=== PATIENT | male | born 1985 | race Caucasian/White ===

== ENCOUNTER 2023-12-19 13:23 | Emergency (ER) | payer SELFPAY ==
[~2023-12-19] VITALS: Ht 167.6 cm; Wt 63.5 kg
[2023-12-19 13:36] VITALS: BP 142/100; PULSE 115; RESP 16; TEMP 98; O2SAT 95
[2023-12-19 13:55] VITALS: O2SAT 95
[2023-12-19] MEDS: ONDANSETRON 4 MG ODT PO ONE (14:40)
[2023-12-19] MEDS: NACL 0.9% 1,000 ML IV ONE (14:41)
[2023-12-19 14:44] LABS: BASOPHILS # (AUTO) 0.1 K/uL (0.00-0.22); BASOPHILS % (AUTO) 0.6 % (0.0-2.0); EOSINOPHILS % (AUTO) 0.2 % (0.0-4.0); HEMATOCRIT 40.3 % (36-52); HEMOGLOBIN 13.8 g/dL (12.0-18.0); LYMPHOCYTES # (AUTO) 0.6 K/uL (2.0-11.5); LYMPHOCYTES % (AUTO) 6.9 % (20.5-51.1); MEAN CORPUSCULAR HEMOGLOBIN 30 pg (27-31); MEAN CORPUSCULAR HGB CONC 34 g/dL (33-37); MEAN CORPUSCULAR VOLUME 86.4 fL (80-94); MONOCYTES # (AUTO) 0.6 K/uL (0.8-1.0); MONOCYTES % (AUTO) 6.8 % (1.7-9.3); NEUTROPHILS % (AUTO) 85.5 % (42.2-75.2); PLATELET COUNT (AUTO) 334 K/uL (140-450); RED BLOOD CELL COUNT(AUTO) 4.66 MIL/uL (4.20-6.10); RED CELL DISTRIBUTION WIDTH 14.1 % (11.6-13.7); WHITE BLOOD COUNT (AUTO) 9.3 K/uL (4.8-10.8)
[2023-12-19 14:51] LABS: ANION GAP 15.8 (8-16); CALCIUM 9.2 mg/dL (8.5-10.1); CARBON DIOXIDE 22.2 mmol/L (21-32); CREATININE 1.5 mg/dL (0.6-1.3)
[2023-12-19 15:02] LABS: ACETAMINOPHEN < 0.5 ug/ml (10-30); ALCOHOL, BLOOD < 3 mg/dL (<10); SALICYLATE < 2.8 mg/dL (2.8-20.0)
[2023-12-19 16:05] VITALS: O2SAT 98
[2023-12-19 16:14] LABS: AMPHETAMINE, URINE POSITIVE ng/ml (NEG <=1000); CANNABINOID, URINE POSITIVE ng/mL (NEG <=50)
[2023-12-19 16:15] LABS: BARBITURATE, URINE NEGATIVE ng/ml (NEG <=200); BENZODIAZEPINE, URINE NEGATIVE ng/mL (NEG <=200); COCAINE, URINE NEGATIVE ng/mL (NEG <=300); OPIATE, URINE NEGATIVE ng/mL (NEG <=2000); PHENCYCLIDINE SCREEN,URINE NEGATIVE ng/mL (NEG <=25)
[2023-12-19] MEDS ORDERED: MIDAZOLAM 5 MG/5 ML VIAL IM ONE (16:25)
[2023-12-19] MEDS ORDERED: MIDAZOLAM 5 MG/5 ML VIAL ONE (16:26)
[2023-12-19] MEDS ORDERED: OLANZapine 10 MG VIAL IM ONE (16:27)
[2023-12-19] MEDS ORDERED: WATER STERILE 10 ML MC ONE (16:34)
[2023-12-19] MEDS ORDERED: MIDAZOLAM 5 MG/1 ML VIAL NS ONE (16:40)
[2023-12-19] MEDS: OLANZapine 10 MG VIAL IM ONE (16:42)
[2023-12-19] MEDS: MIDAZOLAM 2 MG/2 ML VIAL IM ONE (19:25)
[2023-12-19 23:08] VITALS: TEMP 97.9
[2023-12-20 03:34] VITALS: BP 125/59; PULSE 92; RESP 16; O2SAT 99
== END 2023-12-20 04:51 | disposition home or self-care (01) ==
LOC: MED 13:23
DX: F19.10 Other psychoactive substance abuse, uncomplicated (principal); R41.82 Altered mental status, unspecified; I10 Essential (primary) hypertension
CPT/HCPCS: 36415; 70450; 71045; 80048; 80305; 85025; 96360; 96372; 99291; G0480; G0482; J2250; J3490; Q0162; J7030